=== PATIENT | female | born 1950 | race Caucasian/White ===

== ENCOUNTER 2021-12-25 07:29 | Day surgery (SDC) | payer OTHER ==
[2021-12-23 17:38] VITALS: BMI 24.2
[2021-12-25] MEDS ORDERED: PROPOFOL 80 ML ONE (07:59)
[2021-12-25 09:42] VITALS: RESP 18; TEMP 98
[2021-12-25 09:47] VITALS: BP 130/68; PULSE 62
== END 2021-12-25 10:07 | disposition home or self-care (01) ==
LOC: FASU-ENDO 07:29
PROVIDERS: ATTEND Internal Medicine Gastroenterology
PROC: 0DJD8ZZ Inspection of Lower Intestinal Tract, Via Natural or Artificial Opening Endoscopic (ICD-10-PCS; principal; 2021-12-25 09:08)
DX: Z12.11 Encounter for screening for malignant neoplasm of colon (principal); Z86.010 Personal history of colon polyps; Z80.0 Family history of malignant neoplasm of digestive organs
CPT/HCPCS: 82962